=== PATIENT | female | born 1935 ===

== ENCOUNTER 2021-08-05 13:30 | Emergency (ER) | payer MEDICARE, SELFPAY ==
[2021-08-05 13:52] VITALS: BP 128/72; PULSE 70; RESP 20; TEMP 37.4; O2SAT 99
--- NOTE | 2021-08-05 14:01 | ED.URI ---
HPI - URI/Sore Throat General Chief Complaint: Upper Respiratory Infection Stated Complaint: uri Time Seen by Provider: 08/05/21 14:00 Source: patient Mode of arrival: ambulatory Limitations: no limitations History of Present Illness HPI Narrative: Karen Dave is a 85 yo female with a PMH of high cholesterol, HTN, who comes with sinusitis in the frontal and ethmoid sinuses, green mucus, and general drainage she has been taking Flonase on or off and some Tylenol for pain. Started on Tuesday Related Data Home Medications Medication Instructions Recorded Confirmed aspirin [Baby Aspirin] 81 mg PO DAILY 08/05/21 08/05/21 atorvastatin 08/05/21 hydrochlorothiazide 08/05/21 Allergies Allergy/AdvReac Type Severity Reaction Status Date / Time propoxyphene Allergy Mild Unverified 01/29/19 19:20 Review of Systems Review of Systems: CONSTITUTIONAL: Denies fever, chills, sweats. EYES: Denies visual changes, redness, discharge. ENT:has rhinorrhea, has congestion, sore throat, otalgia. CARDIOVASCULAR: Denies chest pain, palpitations, edema. RESPIRATORY: Denies dyspnea, wheezing, cough GASTROINTESTINAL: Denies abdominal pain, nausea, vomiting, diarrhea. GENITOURINARY: Denies dysuria, hematuria, abnormal discharge SKIN: Denies rash or itching. NEUROLOGIC: Denies numbness, or focal weakness. PSYCHIATRIC: Denies anxiety or depression. PMFSH Past Medical History Medical History High cholesterol Hypertension Social History Social History (Updated 08/05/21 @ 14:08 by Linsey Ibrahim CNP) Smoking status: Never smoker Alcohol intake: current Comments At time of signature, I agree with nursing past medical, surgical, social and family history. There is no relevant family history pertinent to the presenting complaint. Exam Narrative: GENERAL: This is a well-nourished, well-developed patient, in mild distress. HEAD: normocephalic, atraumatic. EYES: Sclera clear/white. Vision is grossly intact. EARS: External ears normal, auditory canals clear and without drainage, TMs normal without perforation. Hearing grossly intact. NOSE: External nose normal with green nasal discharge, nares with redness, has rhinorrhea. THROAT: Mucous membranes moist, posterior pharynx mild erythema NECK: Neck supple, non-tender CARDIOVASCULAR: Regular rate and rhythm without murmurs, gallops, or rubs. RESPIRATORY: Clear to auscultation. Breath sounds equal bilaterally. No wheezes, rales, or rhonchi. GASTROINTESTINAL: Abdomen soft, non-tender, SKIN: warm, intact with no suspicious lesions or rash, good texture and turgor. NEURO: awake, alert, and oriented to person, place and time. There were no obvious focal neurologic abnormalities. Steady gait EXTREMITIES: Normal range of motion. BACK: Nontender without deformity Course Course Emergency Course: Patient comes with 2 days of sinus congestion and ethmoid and frontal sinus pain and green discharge Amoxicillin 875 1 twice daily x10 days is to continue Flonase and Tylenol Level of Care: Express Care Visit Vital Signs Vital signs: Vital Signs Temperature 99.3 F 08/05/21 13:52 Pulse Rate 70 08/05/21 13:52 Respiratory Rate 20 08/05/21 13:52 Blood Pressure 128/72 08/05/21 13:52 Pulse Oximetry 99 08/05/21 13:52 Temperature 99.3 F 08/05/21 13:52 Pulse Rate 70 08/05/21 13:52 Respiratory Rate 20 08/05/21 13:52 Blood Pressure 128/72 08/05/21 13:52 Pulse Oximetry 99 08/05/21 13:52 MDM - URI/Sore Throat Differential Diagnosis Differential diagnosis: Likely upper respiratory infection, sinusitis, viral infection, influenza, pharyngitis and other Critical Care Time Critical Care Time Critical Care Time: No Discharge Plan Discharge Clinical Impression: Bacterial sinusitis Patient Disposition: Home, Self-Care Condition: Stable Instructions: Antibiotic Form, Rhinosinusitis (DC) Ad
== END 2021-08-05 14:19 | disposition home or self-care (01) ==
PROVIDERS: Emergency Provider Nurse Practitioner
DX: J32.9 Chronic sinusitis, unspecified (principal); E78.00 Pure hypercholesterolemia, unspecified; I10 Essential (primary) hypertension
CPT/HCPCS: 99213; G0463

== ENCOUNTER 2021-11-20 15:16 | Emergency (ER) | payer MEDICARE, SELFPAY ==
[2021-11-20 15:24] VITALS: BP 115/55; PULSE 90; RESP 16; TEMP 36.8; O2SAT 100
[2021-11-20 15:28] VITALS: BP 115/55; PULSE 90; RESP 16; TEMP 36.8; O2SAT 100
--- NOTE | 2021-11-20 15:59 | ED.URI ---
HPI - URI/Sore Throat General Chief Complaint: Upper Respiratory Infection Stated Complaint: Sore Throat,Ear Pain Time Seen by Provider: 11/20/21 15:29 Source: patient Mode of arrival: ambulatory Limitations: no limitations History of Present Illness HPI Narrative: Ms. Dave is an 86 year old female patient presenting to the clinic today with c/o sore throat and ear pain that just began this morning. She reports that she just got back from [place] yesterday. No known exposure to anyone with covid, flu, or strep. Does also report some nasal congestion. MD elicited complaint: sore throat and nasal congestion Related Data Home Medications Medication Instructions Recorded Confirmed aspirin 81 mg chewable tablet 81 mg PO DAILY 08/05/21 08/05/21 atorvastatin 40 mg tablet 08/05/21 hydrochlorothiazide 25 mg tablet 08/05/21 Citracal 11/20/21 Fish Oil 11/20/21 PreserVision AREDS 11/20/21 alendronate 70 mg tablet tablet PO 11/20/21 ascorbic acid (vitamin C) 11/20/21 gabapentin 100 mg capsule cap 11/20/21 mecobalamin (vitamin B12) 11/20/21 vitamin B complex 11/20/21 vitamin E 11/20/21 Allergies Allergy/AdvReac Type Severity Reaction Status Date / Time propoxyphene Allergy Mild Unverified 01/29/19 19:20 Review of Systems Review of Systems: Pertinent positives per HPI. Patient denies any fever, chills, rash, headache, visual changes, dizziness, cough, shortness of breath, chest pain, palpitations, nausea, vomiting, diarrhea, constipation, abdominal pain, or any urinary issues. [facility] Past Medical History Medical History High cholesterol Hypertension Social History Social History Smoking status: Never smoker Alcohol intake: current Comments At the time of my signature, I reviewed and agree with the nursing past medical, surgical, social, and family history. There is no relevant family history pertinent to the patient complaint. Exam Narrative: General: Well-developed, woverweight, in no apparent distress Head: Normocephalic, atraumatic Eyes: Pupils equally round and reactive to light bilaterally, EOM intact, sclera and conjunctive clear, no discharge, lids normal Ears: TMs intact and clear, ear canals clear, no drainage, grossly hearing normal. Nose: Nares patent,clear nasal discharge, no inflammation, no sinus tenderness. Mouth: Oral pharynx without lesions or masses, good dentition, MMM.Oropharynx red PND Neck: Supple, trachea midline, no enlargement of anterior or posterior cervical nodes, no thyroid masses or goiter palpable. Cardio: Regular rate and rhythm, s1 and s2 normal, no murmur appreciated. Resp: Clear to auscultation bilaterally, no rhonchi, rales, wheezing or rubs Course Course Emergency Course: Portions of this record may have been created with voice recognition software. Level of Care: Express Care Visit Vital Signs Vital signs: Vital Signs Temperature 36.8 C 11/20/21 15:24 Pulse Rate 90 11/20/21 15:24 Respiratory Rate 16 11/20/21 15:24 Blood Pressure 115/55 L 11/20/21 15:24 Pulse Oximetry 100 11/20/21 15:24 Oxygen Delivery Room Air 11/20/21 15:24 Temperature 36.8 C 11/20/21 15:28 Pulse Rate 90 11/20/21 15:28 Respiratory Rate 16 11/20/21 15:28 Blood Pressure 115/55 L 11/20/21 15:28 Pulse Oximetry 100 11/20/21 15:28 Oxygen Delivery Room Air 11/20/21 15:28 Vital signs reviewed MDM - URI/Sore Throat MDM Narrative Medical decision making narrative: At the time of visit patient is resting comfortably on the exam table. Symptoms just began this morning. Covid and strep screen completed and were negative in the clinic. I suspect viral pharyngitis/PND. Supportive measures were discussed and patient voiced understanding of the discharge instructions. Differential Diagnosis Differential diagnosis:
== END 2021-11-20 16:02 | disposition home or self-care (01) ==
PROVIDERS: Emergency Provider Nurse Practitioner Family
DX: J02.9 Acute pharyngitis, unspecified (principal); Z20.822 Contact with and (suspected) exposure to COVID-19; E78.00 Pure hypercholesterolemia, unspecified; I10 Essential (primary) hypertension; Z79.82 Long term (current) use of aspirin
CPT/HCPCS: 87081; 87426; 87880; 99213; C9803; G0463

== ENCOUNTER 2022-02-14 12:50 | Emergency (ER) | payer MEDICARE, SELFPAY ==
[2022-02-14 13:01] VITALS: BP 125/68; PULSE 71; RESP 16; TEMP 36.9; O2SAT 99
--- NOTE | 2022-02-14 13:22 | ED.URI ---
HPI - URI/Sore Throat General Chief Complaint: Upper Respiratory Infection Stated Complaint: congestion Time Seen by Provider: 02/14/22 13:24 Source: patient and RN notes reviewed Mode of arrival: ambulatory Limitations: no limitations History of Present Illness HPI Narrative: 86-year-old female presents to the [facility] with complaint of congestion. Patient reports that symptoms started last night. Patient able to eat or drink. Denies fevers. Had taken 1 Claritin today with no other treatment prior to arrival. Denies chest pain, shortness of breath. Related Data Home Medications Medication Instructions Recorded Confirmed aspirin 81 mg chewable tablet 81 mg PO DAILY 08/05/21 08/05/21 atorvastatin 40 mg tablet 08/05/21 hydrochlorothiazide 25 mg tablet 08/05/21 Citracal 11/20/21 Fish Oil 11/20/21 PreserVision AREDS 11/20/21 alendronate 70 mg tablet tablet PO 11/20/21 ascorbic acid (vitamin C) 11/20/21 gabapentin 100 mg capsule cap 11/20/21 mecobalamin (vitamin B12) 11/20/21 vitamin B complex 11/20/21 vitamin E 11/20/21 prednisone 10 mg tablet mg 02/14/22 Allergies Allergy/AdvReac Type Severity Reaction Status Date / Time propoxyphene Allergy Mild Unknown Unverified 02/14/22 12:53 Review of Systems Review of Systems: All systems reviewed & are unremarkable except as noted in HPI and below Constitutional: Constitutional: Reports no additional constitutional complaints, Denies chills and Denies fever(s) Eyes: Eyes: Reports no additional eye complaints ENT: Reports as per HPI and Reports nasal congestion Cardiovascular: Cardiovascular: Reports no additional cardiovascular complaints Respiratory: Respiratory: Reports no additional respiratory complaints Gastrointestinal: Gastrointestinal: Reports no additional gastrointestinal complaints Musculoskeletal: Musculoskeletal: Reports no additional musculoskeletal complaints Integumentary/Breasts: Skin/Breast: Reports system reviewed and no additional complaints, except as docu Neurologic: Reports system reviewed and no additional complaints, except as documented Psychiatric: Psychiatric: Reports no additional psychiatric complaints Allergic/Immunologic: Allergic/Immunologic: Reports no additional allergic/immunologic complaints PMFSH Past Medical History Medical History High cholesterol Hypertension Social History Social History (Reviewed 02/14/22 @ 20:06 by BROCK Allen Smoking status: Never smoker Alcohol intake: current Comments At the time of my signature, I reviewed and agree with the nursing past medical, surgical, social, and family history. There is no relevant family history pertinent to the patient complaint. Exam Const: General: healthy appearing, no acute distress and alert Nutritional Appearance: well nourished and obese Orientation/consciousness: patient oriented x3 Limitations: no limitations HENMT: Head: normal to inspection Ears: external ears normal, TM's normal bilaterally and Abnormal EAC present cerumen impaction on the right General nose exam: Normal external nose present, Normal nares present and Nasal discharge present Face and sinus: normal facial exam Throat: posterior oropharynx normal and uvula midline Eyes: General: appearance normal, both eyes and all related structures Conjunctivae: conjunctivae normal Pupils: Equal, round and reactive pupils present Neck: Neck: normal visual inspection, no lymphadenopathy and no meningeal signs Chest: Chest palpation & inspection: normal inspection of the chest Resp: Effort & Inspection: normal respiratory effort and no use of accessory muscles Auscultation: clear to auscultation bilaterally, no crackles, no rales, no rhonchi and no wheezes Cardio: Rate: regular rate Rhythm: regular rhythm Back/Spine/Pelvis: Cervical Spine: normal cervical lordosis Thoracic/Lumbar Spine: thoracic an
--- NOTE | 2022-02-14 13:39 | PC.NURSE ---
ear irrigation set up at bedside.
[2022-02-14 17:49] LABS: SARS-CoV-2 RNA PCR Positive
== END 2022-02-14 13:58 | disposition home or self-care (01) ==
PROVIDERS: Emergency Provider Nurse Practitioner
DX: U07.1 COVID-19 (principal); H61.21 Impacted cerumen, right ear; E78.00 Pure hypercholesterolemia, unspecified; I10 Essential (primary) hypertension
CPT/HCPCS: 69209; 87081; 99213; C9803; G0463; U0003; U0005

== ENCOUNTER 2023-08-13 13:31 | Emergency (ER) | payer MEDICARE, SELFPAY ==
[2023-08-13 13:50] VITALS: BP 109/54; PULSE 72; RESP 16; TEMP 37.3; O2SAT 99
[2023-08-13 13:51] VITALS: BP 109/54; PULSE 72; RESP 16; TEMP 37.3; O2SAT 99
--- NOTE | 2023-08-13 13:54 | ED.EAR ---
HPI - Ear Problem General Chief complaint: Ear Stated complaint: fluid on ears Time Seen by Provider: 08/13/23 14:15 Source: patient and RN notes reviewed Mode of arrival: ambulatory Limitations: no limitations History of Present Illness HPI Narrative: 87-year-old female presents with concern for left ear pain and pressure for 3-5 days. Reports she has had a clear runny nose for couple weeks, denies sinus pain or pressure. She denies fever. Denies drainage from the ear. She takes Flonase daily MD Complaint: ear pain Related Data Home Medications Medication Instructions Recorded Confirmed aspirin 81 mg chewable tablet 81 mg PO DAILY 08/05/21 08/05/21 atorvastatin 40 mg tablet 40 mg PO DAILY 08/05/21 hydrochlorothiazide 25 mg tablet 12.5 mg PO DAILY 08/05/21 Citracal 11/20/21 Fish Oil 11/20/21 PreserVision AREDS 11/20/21 ascorbic acid (vitamin C) 11/20/21 gabapentin 100 mg capsule 100 cap PO DAILY 11/20/21 mecobalamin (vitamin B12) 11/20/21 vitamin B complex 11/20/21 vitamin E 11/20/21 apixaban 5 mg tablet (Eliquis) 5 mg PO BID 08/13/23 08/13/23 metoprolol succinate 25 mg mg PO 08/13/23 tablet,extended release 24 hr Allergies Allergy/AdvReac Type Severity Reaction Status Date / Time propoxyphene Allergy Mild Unknown Unverified 08/13/23 13:47 Review of Systems Review of Systems: CONSTITUTIONAL: Denies malaise, chills, sweats, or fever. EYES: Denies visual changes, redness, or discharge. ENT: Denies rhinorrhea, congestion, sinus pain, and sore throat. Reports left ear pain and pressure CARDIOVASCULAR: Denies chest pain, palpitations, or edema. RESPIRATORY: Denies cough. Denies dyspnea. GASTROINTESTINAL: Denies abdominal pain, nausea, vomiting, diarrhea SKIN: Denies rash or itching. MUSCULOSKELETAL: Denies myalgia. NEUROLOGIC: Denies headache. All systems reviewed & are unremarkable except as noted in HPI and below PMFSH Past Medical History Medical History High cholesterol Hypertension Social History Social History (Reviewed 09/11/22 @ 20:06 by BROCK Allen Smoking status: Never smoker Alcohol intake: current Comments At time of signature, agree with nursing past medical, surgical, social and family history. There is no relevant family history pertinent to the presenting complaint Exam Narrative: GENERAL: Well-appearing, well-nourished, and in no acute distress. HEAD: Normocephalic EYES: PERRLA, conjunctivae clear ENT: Nares clear. Mucous membranes moist. TM pearly xie with sharp light reflex on the left, TM not visible on the right due to excess cerumen; no tragal tenderness. Oropharynx not erythematous without lesions. Tonsils not enlarged and without exudate, no drooling, no hoarseness, no trismus, uvula midline. NECK: Supple. No lymphadenopathy CHEST: Clear to auscultation, breath sounds equal. No wheezing, rhonchi, rales, or stridor. No respiratory distress, speaks in full sentences. HEART: Regular rate and rhythm. No murmur heard. SKIN: Warm, dry, no rash. NEURO: Alert and oriented x3. PSYCH: Normal mood and affect Course Course Emergency Course: Patient is aware of diagnosis, understands and agrees to treatment plan. Anticipatory guidance given. Patient agrees to follow-up as directed and is aware of reasons to seek care at the emergency department. Portions of this record may have been created with voice recognition software Level of Care: Express Care Visit Vital Signs Vital signs: Vital Signs Temperature 99.1 F 08/13/23 13:50 Pulse Rate 72 08/13/23 13:50 Respiratory Rate 16 08/13/23 13:50 Blood Pressure 109/54 L 08/13/23 13:50 Pulse Oximetry 99 08/13/23 13:50 Oxygen Delivery Room Air 08/13/23 13:50 Temperature 99.1 F 08/13/23 13:51 Pulse Rate 72 08/13/23 13:51 Respiratory Rate 16 08/13/23 13:51 Blood Pressure 109/54 L 08/13/23 13:51 Pulse Oximetry
== END 2023-08-13 14:35 | disposition home or self-care (01) ==
PROVIDERS: Emergency Provider Nurse Practitioner
DX: H92.02 Otalgia, left ear (principal); E78.00 Pure hypercholesterolemia, unspecified; I10 Essential (primary) hypertension; Z79.82 Long term (current) use of aspirin
CPT/HCPCS: 99213; G0463

== ENCOUNTER 2023-12-27 14:32 | Emergency (ER) | payer MEDICARE, SELFPAY ==
[2023-12-27 14:43] VITALS: BP 111/58; PULSE 68; RESP 16; TEMP 36.4; O2SAT 100
--- NOTE | 2023-12-27 14:53 | ED.URI ---
HPI - URI/Sore Throat General Chief Complaint: Upper Respiratory Infection Stated Complaint: Sinus Source: patient, RN notes reviewed and old records reviewed Mode of arrival: ambulatory Limitations: no limitations History of Present Illness HPI Narrative: Patient presents with complaint of sinus pain and pressure that has been present for approximately 2 weeks. She reports she did not seek care sooner because she felt as though she was getting better. States that symptoms tend to be the worse in the morning and in the evenings. She denies any fever, chills, sweats. She does report postnasal drip. She does have a little bit of a cough. She has been taking Tylenol for headache, moderate relief. Related Data Home Medications Medication Instructions Recorded Confirmed aspirin 81 mg chewable tablet 81 mg PO DAILY 08/05/21 12/27/23 atorvastatin 40 mg tablet 40 mg PO DAILY 08/05/21 12/27/23 hydrochlorothiazide 25 mg tablet 12.5 mg PO DAILY 08/05/21 12/27/23 Citracal 1 tab-cap PO DAILY 11/20/21 12/27/23 Fish Oil 1 tab-cap PO DAILY 11/20/21 12/27/23 PreserVision AREDS 1 dose EACH EYE DAILY 11/20/21 12/27/23 ascorbic acid (vitamin C) 1 tab-cap PO DAILY 11/20/21 12/27/23 gabapentin 100 mg capsule 100 cap PO DAILY 11/20/21 12/27/23 mecobalamin (vitamin B12) 1 tab-cap PO DAILY 11/20/21 12/27/23 vitamin B complex 1 tab-cap PO DAILY 11/20/21 12/27/23 vitamin E 1 tab-cap PO DAILY 11/20/21 12/27/23 apixaban 5 mg tablet (Eliquis) 5 mg PO BID 08/13/23 12/27/23 metoprolol succinate 25 mg 25 mg PO DAILY 08/13/23 12/27/23 tablet,extended release 24 hr Allergies Allergy/AdvReac Type Severity Reaction Status Date / Time propoxyphene Allergy Mild Unknown Verified 12/27/23 14:33 Review of Systems Review of Systems: All systems reviewed & are unremarkable except as noted in HPI and below Constitutional: Constitutional: Reports no additional constitutional complaints ENT: Reports system reviewed and no additional complaints, except as documented, Reports nasal congestion, Reports nasal discharge, Reports post nasal drip, Reports sinus pain, Reports sinus pressure and Reports sore throat Cardiovascular: Cardiovascular: Reports no additional cardiovascular complaints Respiratory: Respiratory: Reports as per HPI and Reports cough Gastrointestinal: Gastrointestinal: Reports no additional gastrointestinal complaints Neurologic: Reports headache(s) [facility] Past Medical History Medical History High cholesterol Hypertension Social History Social History Smoking status: Never smoker Alcohol intake: current Comments At the time of my signature, I reviewed and agree with the nursing past medical, surgical, social, and family history. There is no relevant family history pertinent to the patient complaint. Exam Const: General: cooperative, no acute distress, alert and awake Orientation/consciousness: oriented to person, oriented to place and oriented to time HENMT: Head: normal to inspection Ears: TM's normal bilaterally Face/Nose/Sinus: Nasal discharge present, sinus tenderness (Right maxillary) and Facial tenderness on exam of face and sinuses Throat: posterior oropharynx abnormal erythema and postnasal drainage Neck: Lymphatic: no lymphadenopathy noted Resp: Effort & Inspection: normal respiratory effort and able to speak in complete sentences Auscultation: clear to auscultation bilaterally, no crackles, no rales, no rhonchi and no wheezes Cardio: Palpation: normal PMI Rate: regular rate Rhythm: regular rhythm Heart sounds: S1 normal heart sound present and S2 normal heart sound present Neuro: General: oriented to person, oriented to place and oriented to time Cranial nerves: Yes CN's II-XII intact bilaterally Psych: Appearance: grossly normal Thought process: Normal thought process present Insight: Good insight pre
[2023-12-27 14:54] VITALS: BP 111/58; PULSE 68; RESP 16; TEMP 36.4; O2SAT 100
== END 2023-12-27 15:30 | disposition home or self-care (01) ==
PROVIDERS: Emergency Provider Nurse Practitioner Family
DX: J01.00 Acute maxillary sinusitis, unspecified (principal); E78.00 Pure hypercholesterolemia, unspecified; I10 Essential (primary) hypertension
CPT/HCPCS: 99213; G0463